=== PATIENT | female | born 1965 | race Caucasian/White ===

== ENCOUNTER 2021-09-12 07:21 | Emergency (ER) | payer OTHER ==
[2021-09-12] MEDS ORDERED: CASIRIVIMAB (REGN10933) (EUA) 600 MG, IMDEVIMAB (REGN10987) (EUA) 600 MG in SODIUM CHLO... IVPB ONE (09:00)
--- NOTE | 2021-09-12 09:02 | ED ---
URI HPI - General Chief Complaint: Upper Respiratory Infection Stated Complaint: covid+, wants infusion Time Seen by Provider: 09/12/21 08:18 Source: patient, RN notes reviewed Mode of arrival: ambulatory Limitations: no limitations - History of Present Illness Initial Comments: This a 56-year-old male presents emergency Department with chief complaint of COVID-19. Patient has a positive yesterday symptoms started 5 days ago. Patient states she's had fevers chills cough congestion. Patient was started on steroids for her COPD. Patient states she's been doing breathing treatments, her breathing has been maintained well at home. Patient states she is here for monoclonal antibodies. - Related Data Home Medications Medication Instructions Recorded Confirmed Albuterol Inhaler [Ventolin Hfa 1 puff INHALATION RT-Q4H PRN 09/12/21 09/12/21 Inhaler] Azithromycin [Zithromax Z-pack (6 See Taper PO DAILY 09/12/21 09/12/21 tabs)] D-Methorphan/PE/Acetaminophen 2 cap PO Q4H PRN 09/12/21 09/12/21 [Vicks Dayquil Liquicaps] guaiFENesin [Mucinex] 600 mg PO BID PRN 09/12/21 09/12/21 predniSONE 50 mg PO DAILY 09/12/21 09/12/21 Allergies Allergy/AdvReac Type Severity Reaction Status Date / Time No Known Allergies Allergy Verified 09/12/21 08:52 Review of Systems ROS Statement: Those systems with pertinent positive or pertinent negative responses have been documented in the HPI. ROS Other: All systems not noted in ROS Statement are negative. Past Medical History Past Medical History: COPD Additional Past Medical History / Comment(s): neurosyphillis History of Any Multi-Drug Resistant Organisms: None Reported Past Surgical History: Section, Orthopedic Surgery, Tubal Ligation Additional Past Surgical History / Comment(s): L shoulder Past Psychological History: No Psychological Hx Reported Smoking Status: Former smoker Past Alcohol Use History: None Reported Past Drug Use History: Marijuana General Exam Limitations: no limitations General appearance: alert, in no apparent distress Head exam: Present: atraumatic, normocephalic, normal inspection Eye exam: Present: normal appearance, PERRL, EOMI. Absent: scleral icterus, conjunctival injection, periorbital swelling ENT exam: Present: normal exam, normal oropharynx, mucous membranes moist Neck exam: Present: normal inspection, full ROM. Absent: tenderness, meningismus, lymphadenopathy Respiratory exam: Present: wheezes. Absent: normal lung sounds bilaterally, respiratory distress, rales, rhonchi, stridor Cardiovascular Exam: Present: regular rate, normal rhythm, normal heart sounds. Absent: systolic murmur, diastolic murmur, rubs, gallop, clicks Course Vital Signs 09/12/21 07:29 Temperature 98.5 F Pulse Rate 93 Respiratory 18 Rate Blood Pressure 139/100 O2 Sat by Pulse 93 L Oximetry Medical Decision Making - Medical Decision Making Patient did receive monoclonal and otherwise we discharged stable condition return parameters were discussed. Disposition Clinical Impression: COVID-19 Disposition: HOME SELF-CARE Condition: Stable Instructions (If sedation given, give patient instructions): Coronavirus Disease 2019 (COVID-19) Additional Instructions: Please return to the Emergency Department if symptoms worsen or any other concerns. Is patient prescribed a controlled substance at d/c from ED?: No Referrals: None,Stated [Primary Care Provider] - 1-2 days Time of Disposition: 09:01
[2021-09-12] MEDS ORDERED: SODIUM CHLORIDE 0.9% 50 ML IVPB ONE (09:30)
[2021-09-12 10:29] VITALS: BP 139/89; PULSE 94; RESP 18; TEMP 98.9
== END 2021-09-12 10:28 | disposition home or self-care (01) ==
LOC: EC 07:21
DX: U07.1 COVID-19 (principal); J44.1 Chronic obstructive pulmonary disease with (acute) exacerbation; Z87.891 Personal history of nicotine dependence; Z79.51 Long term (current) use of inhaled steroids
CPT/HCPCS: 99283; 96365; 96361; Q0243